=== PATIENT | female | born 1980 | race American Indian/Alaskan Native ===

== ENCOUNTER 2020-12-27 15:00 | Emergency (ER) | payer SELFPAY ==
[2020-12-27 17:47] VITALS: BP 177/113
--- NOTE | 2020-12-27 17:51 | Emergency Department Report ---
Chief Complaint: High BP Stated Complaint: BP HIGH Time Seen by Provider: 12/27/20 17:37 MSE screening note: Focused history and physical exam performed. Due to findings the following was ordered: ED Disposition for MSE Condition: Stable Referrals: PRIMARY CARE, [Primary Care Provider] - 3-5 Days
--- NOTE | 2020-12-27 17:56 | Emergency Department Report ---
ED General Adult HPI - General Chief complaint: High BP Stated complaint: BP HIGH Time Seen by Provider: 12/27/20 17:37 Source: patient Mode of arrival: Ambulatory Limitations: No Limitations - History of Present Illness Initial comments: 40-year-old morbid obese -[place] female presents to the emergency room stating that her blood pressure has been elevated and that she was trying to pass a physical with her new job. Patient does admit to a mild headache but denies any shortness of breath or chest pain. Patient does admit that she has been under increased stress as she is lost both of her parents recently. Patient does admit to increasing weight as she has been unemployed secondary to Covid and dealing with the of her parents. Patient denies any suicidal homicidal ideation. Onset/Timin -: week(s) Severity scale (0 -10): 2 Consistency: constant Improves with: none Worsens with: none Associated Symptoms: denies other symptoms Treatments Prior to Arrival: none - Related Data Previous Rx's Medication Instructions Recorded Last Taken Type amLODIPine 5 mg PO DAILY #30 tab 12/27/20 Unknown Rx Allergies Allergy/AdvReac Type Severity Reaction Status Date / Time No Known Allergies Allergy Unverified 12/27/20 15:23 ED Review of Systems ROS: Stated complaint: BP HIGH Other details as noted in HPI Comment: All other systems reviewed and negative ED Past Medical Hx - Past Medical History Previous Medical History?: No - Surgical History Past Surgical History?: No - Medications Home Medications: Home Medications Medication Instructions Recorded Confirmed Last Taken Type amLODIPine 5 mg PO DAILY #30 tab 12/27/20 Unknown Rx ED Physical Exam - General Limitations: No Limitations General appearance: alert, in no apparent distress - Head Head exam: Present: atraumatic, normocephalic - Eye Eye exam: Present: normal appearance - ENT ENT exam: Present: mucous membranes moist - Neck Neck exam: Present: normal inspection - Respiratory Respiratory exam: Present: normal lung sounds bilaterally. Absent: respiratory distress - Cardiovascular Cardiovascular Exam: Present: regular rate, normal rhythm. Absent: systolic murmur, diastolic murmur, rubs, gallop ED Course Vital Signs 12/27/20 17:46 Temperature 98.6 F Pulse Rate 95 H Respiratory 20 Rate Blood Pressure 177/113 [Right] O2 Sat by Pulse 99 Oximetry ED Medical Decision Making - Medical Decision Making 40-year-old morbid obese -[place] female presents to the emergency room stating that her blood pressure has been elevated and that she was trying to pass a physical with her new job. Patient does admit to a mild headache but denies any shortness of breath or chest pain. Patient does admit that she has been under increased stress as she is lost both of her parents recently. P atient does admit to increasing weight as she has been unemployed secondary to Covid and dealing with the of her parents. Patient denies any suicidal homicidal ideation. This patient on amlodipine 5 mg daily. Recommend patient to follow-up with Dr. Evette Pepper or [facility]. Critical care attestation.: If time is entered above; I have spent that time in minutes in the direct care of this critically ill patient, excluding procedure time. ED Disposition Clinical Impression: Severe obesity (BMI >= 40) HTN (hypertension) Qualifiers: Hypertension type: unspecified Qualified Code(s): I10 - Essential (primary) hypertension Disposition: DC- TO HOME OR SELFCARE Is pt being admited?: No Does the pt Need Aspirin: No Condition: Stable Instructions: Hypertension (ED), Preventing Hypertension Additional Instructions: Please take ambulance as prescribed. Increase your water intake avoid sodium intake such as processed foods such as can foods gant. eat frozen. Prescriptions: amLODIPine 5 mg PO DAILY #30 tab Referrals: PRIMARY CAREMD [Primary Care Provider] - 3-5 Days [facility] [Provider Group] - 3-5 Days ANGIE LIEBERMAN MD [Staff Physician] - 3-5 Days [facility] [Outside] - 3-5 Days
== END 2020-12-27 18:08 | disposition home or self-care (01) ==
LOC: ED 15:00
DX: I10 Essential (primary) hypertension (principal); E66.9 Obesity, unspecified; Z79.899 Other long term (current) drug therapy; Z68.43 Body mass index [BMI] 50.0-59.9, adult
CPT/HCPCS: 99281